=== PATIENT | female | born 1960 | race Caucasian/White ===

== ENCOUNTER → 2016-03-17 | Outpatient (CLI) | payer OTHER ==
--- NOTE | 2016-03-17 15:09 | US ---
Ultrasound Pelvis Complete (Transabdominal and Endovaginal) Including Duplex/Doppler Imaging History: N95.0, postmenopausal bleeding. Technique: Transabdominal and endovaginal ultrasound images were obtained. Endovaginal images obtain ed for better evaluation of the uterine myometrium and adnexa. Duplex/Doppler imaging of adnexa. Findings: Uterus measures 9 x 5 x 5 cm. Endometrial thickness is 4 mm. Heterogenous cervical mass id entified on the endovaginal images measuring 16 x 10 mm. No definite uterine leiomyomata. Right ovary measures 1.5 x 1.7 x 1 cm. Left ovary measures 2.2 x 1.9 x 1.5 cm. No adnexal masses. No significant free fluid in the pelvis. Color Doppler flow to both ovaries without torsion. Impression: 1. Heterogenous endocervical mass measuring 16 x 10 mm. Consider cervical biopsy. 2. No adnexal masses, or ascites.
== END ==
LOC: FIMAGING 08:12
PROVIDERS: ATTEND Physician Assistant
DX: N85.8 Other specified noninflammatory disorders of uterus (principal)

== ENCOUNTER 2016-05-10 12:10 | Day surgery (SDC) | payer OTHER ==
--- NOTE | 2016-05-04 16:29 | GHP ---
DATE OF ADMISSION: 05/10/2016 ADMITTING DIAGNOSES: 1. Postmenopausal bleeding. 2. Endocervical mass. HISTORY OF PRESENT ILLNESS: Patient is a 56-year-old, 2, para 2-0-0-2, postmenopausal female, who presents from her PCPs office for evaluation and treatment of endocervical mass and postmenopausal bleeding. 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 She has had no bleeding since this, except for one episode in March of 2016 for 1-2 days. She had bright red bleeding. She also noted some discomfort in her lower abdomen. The patient has been on hormone replacement therapy; both the estrogen patch and progesterone for about 10 months now, and doing well. She did have a pelvic ultrasound showing a uterus that was enlarged about 9 x 6 cm, with an endometrial stripe at 4 mm, and a heterogeneous cervical mass measuring 16 x 10 mm; bilateral ovaries are normal, and no free fluid in the pelvis. The patient did have a cervical biopsy done, and it was negative. A recent Pap smear in 2015 was also normal. Patient does have a history of abnormal Paps treated with a LEEP about 15 years ago. PAST OBSTETRICAL HISTORY: She has had 2 uncomplicated vaginal deliveries in 1991 and 1995. GYNECOLOGIC HISTORY: Menarche age 14. Cycles were twice a month for 7 days. She is in menopause now, status post chemoradiation for squamous cell anal cancer. She does have a history of abnormal Paps treated with a LEEP 15 years ago. The patient denies any exposure to sexually transmitted diseases. PAST MEDICAL HISTORY: Remarkable for hypertension, history of squamous cell anal cancer. PAST SURGICAL HISTORY: A fractured wrist in 1974, tonsillectomy in 1978. MEDICATIONS: Include the estrogen patch, progesterone, as well as amlodipine. ALLERGIES: No known drug allergies. FAMILY HISTORY: Father with heart disease and diabetes. Mother with hypertension. Maternal grandmother had a stroke. LABORATORY DATA: CBC is pending. PHYSICAL EXAMINATION: GENERAL: On admission, patient is alert, oriented x3. No apparent distress. A well-nourished, well-developed female. HEART: Regular rate, rhythm. LUNGS: Clear to auscultation. ABDOMEN: Soft, nondistended, nontender. PELVIC: Bimanual exam: Uterus enlarged, 8 to 9-week size, mobile, nontender. Ovaries: There are no masses, nonpalpable. EXTREMITIES: Normal to inspection, without edema or calf tenderness. ASSESSMENT AND PLAN: The patient is a 56-year-old, 2, para 2-0-0-2, postmenopausal female, with postmenopausal bleeding, and an endocervical mass that is most likely a polyp. PLAN: 1. We reviewed ultrasound findings and with her symptoms, recommend we proceed with surgery for a diagnostic hysteroscopy, and a dilation and curettage; pt agrees. 2. Discussed that having surgery will both give us a tissue diagnosis as well as treat her symptoms. 3. Surgical consents were obtained in the office. Risks, benefits, and alternatives were reviewed with the patient, including bleeding, infection, risk of uterine perforation. 4. Discussed the procedure, limitations, n.p.o. status, postop, and recovery time. The patient understands all risks, and wants to proceed with surgery at this time. 5. Surgery is scheduled for Tuesday, May 10, at 1:30 p.m. Antibiotics, 2 g of Ancef fraud prevention analyst to OR, and SCDs for DVT prophylaxis. /[id number]/MODL MTDD
[~2016-05-10 12:10] MED LIST: ceFAZolin 2 GM/DEXTROSE 100 ML IV ONE
[2016-05-10] MEDS ORDERED: SILVER NITRATE APPLICATOR 1 APPL TP ONE (12:23)
[2016-05-10] MEDS ORDERED: CEFAZOLIN 2 GM/DEXTROSE/100 ML BAG IV ONE (13:14)
[2016-05-10] MEDS ORDERED: PROPOFOL/EMULSION 500 MG/50 ML BOTTLE IV ONE (13:33)
[2016-05-10] MEDS ORDERED: fentaNYL 100 MCG/2 ML INJ ONE (13:35)
[2016-05-10] MEDS ORDERED: MIDAZOLAM 2 MG/2 ML VIAL ONE (13:45)
[2016-05-10] MEDS ORDERED: IBUPROFEN 200 MG TAB PO ONE (15:07)
--- NOTE | 2016-05-10 18:17 | GOP ---
DATE OF OPERATION: 05/10/2016 SURGEON: Lucrecia Coker DO HEALTH POLICY MANAGER: None. ANESTHESIA: LMA. PREOPERATIVE DIAGNOSIS: 1. Postmenopausal bleeding. 2. Endocervical mass. POSTOPERATIVE DIAGNOSIS: 1. Postmenopausal bleeding. 2. Endocervical mass. 3. Endocervical polyp. PROCEDURE PERFORMED: 1. Diagnostic hysteroscopy 2. MyoSure 3. Dilation and curettage. FINDINGS: The uterus was anteverted and of normal size, the cervix was scarred , and the adnexal examination was negative for any masses on bimanual exam. The uterus was sounded to 7 cm. The endometrial cavity appeared normal without any lesions. Thin-appearing endometrium was noted. There was noted to be a 12 x 14 mm polypoid projection noted anteriorly in endocervical canal. All specimens sent to Pathology. SPECIMENS: 1. Endometrial curettings. 2. Endocervical mass. ESTIMATED BLOOD LOSS: Less than 10 cc. INDICATIONS: The patient is a 56-year-old, who presented to my office from her PCP's office for evaluation and treatment of postmenopausal bleeding and endocervical mass. The patient has a history of squamous cell anal cancer and underwent chemoradiation, and immediately went into menopause. Patient then noticed in November 2015 she had 1-2 days of bleeding like a menses. She has had no further bleeding since. Also noted some lower abdominal discomfort. Patient did have an ultrasound done that showed a thin lining at 4 mm as well as a 12 x 15 mm endocervical mass, ovaries normal bilaterally, no free fluid. Patient had a cervical biopsy that was done and negative for malignancy. It was decided to proceed with surgery, a diagnostic hysteroscopy and D and C, for both a tissue diagnosis as well as treatment for postmenopausal bleeding. DESCRIPTION OF PROCEDURE: The patient was taken to the operating room, where anesthesia was obtained without difficulty. Patient was prepped and draped in a sterile manner, and placed in dorsal lithotomy position. A bivalve speculum was placed in the vagina. The cervix was exposed and appeared to be scarred. Anterior lip of the cervix was grasped with a single-toothed tenaculum. The uterus was then sounded to a depth of 7 cm. Endocervical canal was then progressively dilated with Hanks dilators to a #6. The hysteroscope was then introduced into the uterine cavity after being prepped. The hysteroscope was introduced into the uterine cavity using sterile saline solution as the distending media with attached videocamera. The endometrial cavity was distended with fluid. The cavity was visualized. The coronal areas were visualized bilaterally with corresponding tubal ostia. Thin-appearing endometrium was noted. No direct intraluminal lesions were seen. There was noted to be a 12 x 14 mm polypoid projection anteriorly in endocervical canal. At this time, the MyoSure was advanced through the operative port of the hysteroscope and with suction, the MyoSure was activated and the polypoid projection was completely removed. The hysteroscope was then removed from the cavity as well as MyoSure. There was a fluid deficit noted of 70 cc noted. After completion, we then turned our attention to the uterine curettage. A large sharp curette was then gently advanced up to the uterus with minimal amount of tissue retrieved. All instruments were then removed from the vagina. Hemostasis was noted. Sponge and instrument counts were correct x2. No complications. Patient tolerated well. The patient was then taken out of dorsal lithotomy position, awakened, and sent to recovery area in satisfactory postoperative condition. IV FLUIDS: 800 cc of LR. URINE OUTPUT: Patient emptied her bladder prior to coming back to the operating room. /[id number]/MODL MTDD
== END 2016-05-10 15:44 | disposition home health service (06) ==
LOC: FSGY 12:10
PROVIDERS: ATTEND Obstetrics & Gynecology
PROC: 0UDB8ZX Extraction of Endometrium, Via Natural or Artificial Opening Endoscopic, Diagnostic (ICD-10-PCS; principal; 2016-05-10 13:45)
DX: N95.0 Postmenopausal bleeding (principal); N84.1 Polyp of cervix uteri; I10 Essential (primary) hypertension
CPT/HCPCS: C1782; J0690; J2250; J2704; J3010

== ENCOUNTER → 2016-07-16 | Outpatient (CLI) | payer OTHER | LOC: FIMAGING 10:15 | PROVIDERS: ATTEND Internal Medicine Hematology & Oncology | DX: M79.89 Other specified soft tissue disorders (principal); C21.8 Malignant neoplasm of overlapping sites of rectum, anus and anal canal ==

== ENCOUNTER → 2017-05-02 | Outpatient (CLI) | payer OTHER | LOC: FIMAGING 11:48 | PROVIDERS: ATTEND Obstetrics & Gynecology | DX: Z12.31 Encounter for screening mammogram for malignant neoplasm of breast (principal) ==

== ENCOUNTER → 2018-06-07 | Outpatient (CLI) | payer OTHER | LOC: FIMAGING 08:51 | PROVIDERS: ATTEND Physician Assistant | DX: Z13.820 Encounter for screening for osteoporosis (principal); M85.89 Other specified disorders of bone density and structure, multiple sites ==

== ENCOUNTER → 2018-06-14 | Outpatient (CLI) | payer OTHER | LOC: FIMAGING 09:06 | PROVIDERS: ATTEND Physician Assistant | DX: Z12.31 Encounter for screening mammogram for malignant neoplasm of breast (principal) ==

== ENCOUNTER → 2018-06-29 | Outpatient (CLI) | payer OTHER | LOC: FIMAGING 08:49 | PROVIDERS: ATTEND Physician Assistant | DX: R92.8 Other abnormal and inconclusive findings on diagnostic imaging of breast (principal) ==